=== PATIENT | female | born 1970 | race American Indian/Alaskan Native ===

== ENCOUNTER 2019-10-27 22:26 | Emergency (ER) | payer SELFPAY ==
[2019-10-28] MEDS ORDERED: KETOROLAC 30 MG/1 ML INJ IM ONE (04:34)
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
[2019-10-28 07:42] VITALS: BP 160/90
== END 2019-10-28 07:41 | disposition home or self-care (01) ==
LOC: ED 22:26
DX: M54.5 Low back pain (principal); M25.572 Pain in left ankle and joints of left foot; I11.0 Hypertensive heart disease with heart failure; I50.9 Heart failure, unspecified; E11.9 Type 2 diabetes mellitus without complications; M13.88 Other specified arthritis, other site; Z79.899 Other long term (current) drug therapy
CPT/HCPCS: 72100; 72131; 96372; 99284; J1885

== ENCOUNTER 2020-04-28 19:48 | Emergency (ER) | payer OTHER ==
--- NOTE | 2020-04-28 23:49 | Emergency Department Report ---
- General Chief Complaint: Upper Respiratory Infection Stated Complaint: FLU SX/CHEST PAIN/DEVENDRA Time Seen by Provider: 04/28/20 23:12 Source: patient Mode of arrival: Ambulatory Limitations: No Limitations - History of Present Illness Initial Comments: 49-year-old obese [place]ian female past medical history of hypertension, diabetes, arthritis presents emergency department complaining of a 2-day history of sudden onset of runny nose, nasal congestion, myalgia, productive cough, sore throat with occasional chills and hot flashes of an unknown etiology. No diarrhea or constipation. No vomiting or rashes. She has no known contact with the coronavirus MD Complaint: cough, sore throat, rhinorrhea, nasal congestion, sinus pain -: Sudden Severity: mild Consistency: constant Improves With: nothing Worsens With: nothing Associated Symptoms: chills, myalgias, rhinorrhea, nasal congestion, sore throat, cough. denies: abdominal pain, nausea, vomiting, right sweats, weight loss, epistaxis, hoarseness - Related Data Home Medications Medication Instructions Recorded Confirmed Last Taken K-Tab ER 10 meq PO TID 08/14/14 08/15/14 Unknown Lisinopril 20 mg PO DAILY 08/14/14 08/14/14 Unknown Lovastatin 10 mg PO DAILY 08/14/14 08/14/14 Unknown Aspirin 325 mg PO DAILY 08/15/14 08/15/14 Unknown Fiorinal with Codeine #3 Cap 2 tab PO Q4H PRN 08/15/14 08/15/14 Unknown Furosemide 20 mg PO BID 08/15/14 08/15/14 Unknown Isosorbide Mononitrate ER 30 mg PO DAILY 08/15/14 08/15/14 Unknown Metoprolol 25 mg PO BID 08/15/14 08/15/14 Unknown Neurontin 600 mg PO TID 08/15/14 08/15/14 Unknown metFORMIN 500 mg PO BID 08/15/14 08/15/14 Unknown Previous Rx's Medication Instructions Recorded Last Taken Type Ibuprofen [Motrin 800 MG tab] 800 mg PO Q8HR PRN #30 tablet 10/28/19 Unknown Rx tiZANidine [Zanaflex 4mg TAB] 4 mg PO Q8H PRN #15 tablet 10/28/19 Unknown Rx Albuterol Mdi (or & Nicu Only) 2 puff IH QID PRN #1 inhalation 04/28/20 Unknown Rx [ProAir HFA Inhaler] Azithromycin [Zithromax] 500 mg PO QDAY #5 tablet 04/28/20 Unknown Rx Benzonatate [Tessalon Perles] 100 mg PO Q8HR #20 capsule 04/28/20 Unknown Rx Allergies Allergy/AdvReac Type Severity Reaction Status Date / Time ibuprofen [From Motrin] Allergy Unknown Verified 04/28/20 20:14 pneumococcal vaccine Allergy Unknown Verified 04/28/20 20:14 ED Review of Systems ROS: Stated complaint: FLU SX/CHEST PAIN/DEVENDRA Other details as noted in HPI Comment: All other systems reviewed and negative ED Past Medical Hx - Past Medical History Previous Medical History?: Yes Hx Hypertension: Yes Hx Congestive Heart Failure: Yes Hx Diabetes: Yes Hx Arthritis: Yes Hx Asthma: Yes Hx COPD: Yes Additional medical history: Neuropathy, - Surgical History Past Surgical History?: Yes Additional Surgical History: Tubal Ligation, Lump removed fro Right upper arm & left thigh, - Social History Smoking Status: Never Smoker Substance Use Type: None - Medications Home Medications: Home Medications Medication Instructions Recorded Confirmed Last Taken Type K-Tab ER 10 meq PO TID 08/14/14 08/15/14 Unknown History Lisinopril 20 mg PO DAILY 08/14/14 08/14/14 Unknown History Lovastatin 10 mg PO DAILY 08/14/14 08/14/14 Unknown History Aspirin 325 mg PO DAILY 08/15/14 08/15/14 Unknown History Fiorinal with Codeine #3 Cap 2 tab PO Q4H PRN 08/15/14 08/15/14 Unknown History Furosemide 20 mg PO BID 08/15/14 08/15/14 Unknown History Isosorbide Mononitrate ER 30 mg PO DAILY 08/15/14 08/15/14 Unknown History Metoprolol 25 mg PO BID 08/15/14 08/15/14 Unknown History Neurontin 600 mg PO TID 08/15/14 08/15/14 Unknown History metFORMIN 500 mg PO BID 08/15/14 08/15/14 Unknown History Ibuprofen [Motrin 800 MG tab] 800 mg PO Q8HR PRN #30 tablet 10/28/19 Unknown Rx tiZANidine [Zanaflex 4mg TAB] 4 mg PO Q8H PRN #15 tablet 10/28/19 Unknown Rx Albuterol Mdi (or & Nicu Only) 2 puff IH QID PRN #1 inhalation 04/28/20 Unknown Rx [ProAir HFA Inhaler] Azithromycin [Zithromax] 500 mg PO QDAY #5 tablet 04/28/20 Unknown Rx Benzonatate [Tessalon Perles] 100 mg PO Q8HR #20 capsule 04/28/20 Unknown Rx ED Physical Exam - General Limitations: No Limitations General appearance: alert, in no apparent distress - Head Head exam: Present: atraumatic, normocephalic - Eye Eye exam: Present: normal appearance, PERRL, EOMI Pupils: Present: normal accommodation - ENT ENT exam: Present: normal exam, normal orophraynx, mucous membranes moist, other (Nasal congestion with clear drainage. Swelling to the nasal turbinates noted.) - Neck Neck exam: Present: normal inspection, full ROM - Respiratory Respiratory exam: Present: normal lung sounds bilaterally. Absent: respiratory distress, rales, rhonchi, accessory muscle use, decreased breath sounds - Cardiovascular Cardiovascular Exam: Present: regular rate, normal rhythm. Absent: systolic murmur, diastolic murmur, rubs, gallop - GI/Abdominal GI/Abdominal exam: Present: soft, normal bowel sounds. Absent: tenderness, guarding, hyperactive bowel sounds, hypoactive bowel sounds, organomegaly - Extremities Exam Extremities exam: Present: normal inspection, full ROM - Back Exam Back exam: Present: normal inspection. Absent: CVA tenderness (R), CVA tenderness (L), muscle spasm, paraspinal tenderness - Neurological Exam Neurological exam: Present: alert, oriented X3, CN II-XII intact, normal gait - Psychiatric Psychiatric exam: Present: normal affect, normal mood. Absent: anxious, flat affect, suicidal ideation - Skin Skin exam: Present: warm, dry, intact, normal color. Absent: rash ED Course Vital Signs 04/28/20 20:13 Temperature 98.5 F Pulse Rate 90 Respiratory 19 Rate Blood Pressure 158/84 O2 Sat by Pulse 98 Oximetry ED Medical Decision Making - Medical Decision Making This patient presents with acute cough, most consistent with bronchitis. Differential diagnosis includes bronchitis, asthma, hyperreactive airway disease, viral syndrome. Presentation not consistent with acute bacterial pneumonia, influenza, asthma, transient airway hyperresponsiveness. Presentation not consistent with chronic causes of cough (including GERD, asthma, postnasal discharge, medication side effect, CHF, lung cancer or mass). This patient presents with lower respiratory symptoms concerning for viral syndrome including flu. Patient does not meet criteria for COVID-19. Doubt pneumonia, sepsis or other serious bacterial infection or acute emergent condition. Is otherwise well-appearing with acceptable vitals and reassuring physical examination and is safe to be discharged home. Patient lacks serious medical comorbidities that would require admission. Patient is nontoxic and although symptomatic otherwise safe to go home. Will provide strict return precautions and instructions on self isolation/quarantine and anticipatory guidance. Plan: We will start on medications for supportive care, reassess Critical care attestation.: If time is entered above; I have spent that time in minutes in the direct care of this critically ill patient, excluding procedure time. ED Disposition Clinical Impression: Cough, Pharyngitis, Bronchitis Disposition: DC- TO HOME OR SELFCARE Is pt being admited?: No Does the pt Need Aspirin: No Condition: Stable Instructions: Chronic Bronchitis (ED), Cool Mist Vaporizer, Upper Respiratory Infection, Adult, [id number], Pharyngitis, How to Use a Dry Powder Inhaler, [id number], Cough, Adult Prescriptions: Albuterol Mdi (or & Nicu Only) [ProAir HFA Inhaler] 2 puff IH QID PRN #1 inhalation PRN Reason: Shortness Of Breath Benzonatate [Tessalon Perles] 100 mg PO Q8HR #20 capsule Azithromycin [Zithromax] 500 mg PO QDAY #5 tablet Referrals: PRIMARY MD JORGE [Primary Care Provider] - 3-5 Days RASHAD BENJAMIN MD [Staff Physician] - 3-5 Days
[2020-04-29 00:56] VITALS: BP 160/103
== END 2020-04-29 00:55 | disposition home or self-care (01) ==
LOC: ED 19:48
DX: J40 Bronchitis, not specified as acute or chronic (principal); J02.9 Acute pharyngitis, unspecified; R05 Cough; I11.0 Hypertensive heart disease with heart failure; I50.9 Heart failure, unspecified; M19.91 Primary osteoarthritis, unspecified site; J44.9 Chronic obstructive pulmonary disease, unspecified; Z98.51 Tubal ligation status; Z98.890 Other specified postprocedural states; Z79.899 Other long term (current) drug therapy; Z79.1 Long term (current) use of non-steroidal anti-inflammatories (NSAID); Z88.8 Allergy status to other drugs, medicaments and biological substances
CPT/HCPCS: 99282